=== PATIENT | female | born 1985 | race Caucasian/White ===

== ENCOUNTER 2016-05-06 14:17 | Day surgery (SDC) | payer OTHER ==
[~2016-05-06] VITALS: Ht 172.7 cm; Wt 74.2 kg
[2016-05-06 15:38] VITALS: BP 117/84; PULSE 99; TEMP 98.6
[2016-05-06] MEDS ORDERED: ZANTAC 7575 MG PO (15:43)
[2016-05-06] MEDS ORDERED: LEVBID0.375 MG PO (15:44)
[2016-05-06] MEDS ORDERED: LEVONORGESTREL PO (15:45)
[2016-05-06] MEDS ORDERED: [UNRECOGNIZED DRUG - OTHER] PO (15:45)
[2016-05-06] MEDS ORDERED: ETHINYL ESTRADIOL PO (15:45)
[2016-05-06 16:49] VITALS: BP 95/70; PULSE 77; TEMP 98.1
[2016-05-06 17:00] VITALS: BP 90/57; PULSE 71
[2016-05-06 17:15] VITALS: BP 95/53; PULSE 86
[2016-05-06 17:45] VITALS: BP 91/54; PULSE 63
== END 2016-05-06 17:54 | disposition home or self-care (01) ==
LOC: SDCO 14:17
DX: K92.1 Melena (principal); R19.7 Diarrhea, unspecified; K64.0 First degree hemorrhoids; K21.0 Gastro-esophageal reflux disease with esophagitis
CPT/HCPCS: OP; J2250; J2405; J3010; J7030